=== PATIENT | male | born 1990 | race Caucasian/White ===

== ENCOUNTER → 2016-12-31 | Outpatient (CLI) | payer BC ==
--- NOTE | 2016-12-31 10:43 | DIAGNOSTIC IMAGING REPORT ---
THORACIC SPINE 3 VIEWS HISTORY: Pain PAIN IN THORACIC SPINE COMPARISON: None. FINDINGS: There is no fracture. No subluxation. Mild scoliosis. IMPRESSION: Mild scoliosis. Otherwise negative study. Electronically signed by: Ward Sena M.D. 12/31/2016 10:42 AM Dictated Date/Time: 12/31/2016 10:41 AM
== END | disposition home or self-care (01) ==
LOC: C.RAD1850 10:12
PROVIDERS: ATTEND Nurse Practitioner Family
DX: M54.6 Pain in thoracic spine (principal)